=== PATIENT | female | born 1995 | race Caucasian/White ===

== ENCOUNTER 2024-02-15 22:36 | Emergency (ER) | payer OTHER ==
[~2024-02-15] VITALS: Ht 170.2 cm; Wt 70.3 kg
[2024-02-15 22:55] VITALS: BP_SYST 116; PULSE 58; RESP 21; TEMP 97.4; O2SAT 96
[2024-02-15] MEDS: ALPRAZolam 0.25 MG TABLET PO ONE (23:12)
[2024-02-15] MEDS ORDERED: HYDR-500 PO (23:44)
[2024-02-15 23:46] VITALS: BP_SYST 116; PULSE 58; RESP 21; TEMP 97.4; O2SAT 96
== END 2024-02-15 23:46 | disposition home or self-care (01) ==
LOC: SED 22:36
DX: F41.9 Anxiety disorder, unspecified (principal)
CPT/HCPCS: 99283